=== PATIENT | male | born 1950 | race Caucasian/White ===

== ENCOUNTER → 2016-05-11 | Outpatient (CLI) | payer MEDICARE, OTHER | END | disposition home or self-care (01) | LOC: CDC 13:12 | DX: Z01.810 Encounter for preprocedural cardiovascular examination (principal); R00.1 Bradycardia, unspecified; K42.9 Umbilical hernia without obstruction or gangrene | CPT/HCPCS: 93000 ==

== ENCOUNTER 2016-08-23 17:17 | Inpatient (IN) | payer OTHER ==
[~2016-08-23] VITALS: Ht 182.9 cm; Wt 106.8 kg
[2016-08-23 18:05] LABS: BASOPHIL COUNT 0.1 K/uL (0-0.1); EOSINOPHIL (%) 1.1 % (0-5); EOSINOPHIL COUNT 0.1 K/uL (0-0.3); IMMATURE GRANULOCYTE (%) 0.3 % (0.0-0.7); INSTRUMENT ABS NEUTROPHIL CT 7.4 K/uL; LYMPHOCYTE COUNT 2.8 K/uL (1.0-2.8); MCH 29.1 PG (29.0-34.0); MCHC 32.8 G/DL (30.0-36.0); MCV 88.8 FL (86-99); MEAN PLAT.VOLUME 12.1 uM^3 (9.0-12.4); MONOCYTE COUNT 0.9 K/uL (0-0.8); NEUTROPHIL (%) 65.5 % (45-76); NEUTROPHIL COUNT 7.4 K/uL (1.8-6.4); PLATELET COUNT 215 K/uL (156-360); RBC DIS.WIDTH-CV 13.1 % (11.8-14.6); RBC DIS.WIDTH-SD 42.5 % (39-53); RED BLOOD COUNT 5.29 M/uL (4.00-5.50); WHITE BLOOD COUNT 11.3 K/uL (4.1-10.2)
[2016-08-23 18:18] LABS: ERTH.SED.RATE 38 MM/HR (0-20)
[2016-08-23 18:26] LABS: CHLORIDE 102 mEq/L (99-109); POTASSIUM 3.7 mEq/L (3.7-5.4); SODIUM 138 mEq/L (136-147)
[2016-08-23 18:28] LABS: GLUCOSE 72 mg/dL (70-99)
[2016-08-23 18:29] LABS: ANION GAP 11 MEQ/L (2-14)
[2016-08-23 18:30] LABS: TOTAL BILIRUBIN 0.5 mg/dL (0.0-1.0)
[2016-08-23 18:32] LABS: ALKALINE PHOSPHATASE 52 IU/L (3-129); GFR ESTIMATE (CALCULATED) > 59 mL/min/
[2016-08-23 18:33] LABS: UREA NITROGEN (BUN) 15 mg/dL (9-23)
[2016-08-23 19:02] LABS: C-REACTIVE PROTEIN 12.9 MG/L (0-10); SAMPLE HEMOLYSIS CHECK 0; SAMPLE ICTERIC CHECK 0; SAMPLE LIPEMIA CHECK 0
[2016-08-23] MEDS ORDERED: LOVASTATIN40 MG PO (19:12)
[2016-08-23] MEDS ORDERED: HUMIRA40 MG/0.1 SC (19:13)
[2016-08-23] MEDS ORDERED: VITAMIN D400 UNI1 PO (19:13)
[2016-08-23] MEDS ORDERED: LOTREL 10/21 CAPSULE PO (19:13)
[2016-08-23] MEDS ORDERED: VITAMIN E400 UNIT PO (19:14)
[2016-08-23] MEDS ORDERED: TUMERSAID TABL1 EACH PO (19:15)
[2016-08-24] VITALS (8 sets, daily range): BP systolic 114–154; BP diastolic 69–85
[2016-08-24 05:22] LABS: HEMATOCRIT 40.3 % (38.0-50.0); MCH 29.2 PG (29.0-34.0); MCHC 32.8 G/DL (30.0-36.0); MCV 89.2 FL (86-99); MEAN PLAT.VOLUME 11.9 uM^3 (9.0-12.4); PLATELET COUNT 167 K/uL (156-360); RBC DIS.WIDTH-CV 13.1 % (11.8-14.6); RBC DIS.WIDTH-SD 43.1 % (39-53); RED BLOOD COUNT 4.52 M/uL (4.00-5.50); WHITE BLOOD COUNT 8.8 K/uL (4.1-10.2)
[2016-08-24 05:39] LABS: ALKALINE PHOSPHATASE 44 IU/L (3-129); ANION GAP 7 MEQ/L (2-14); CHLORIDE 105 MEQ/L (99-109); GFR ESTIMATE (CALCULATED) > 59 mL/min/; POTASSIUM 3.7 MEQ/L (3.7-5.4); SAMPLE HEMOLYSIS CHECK 0; SAMPLE ICTERIC CHECK 0; SAMPLE LIPEMIA CHECK 0; SODIUM 135 MEQ/L (136-147); TOTAL BILIRUBIN 0.7 MG/DL (0.0-1.0); UREA NITROGEN (BUN) 13 mg/dL (9-23)
[2016-08-24 05:40] LABS: GLUCOSE 109 mg/dL (70-99)
[2016-08-25 03:28] VITALS: BP 130/82
[2016-08-25 07:27] VITALS: BP 115/66
[2016-08-25 11:18] VITALS: BP 110/67
[2016-08-25 15:19] VITALS: BP 114/63
[2016-08-26 00:10] VITALS: BP 119/68
[2016-08-26 05:56] LABS: ANION GAP 12 MEQ/L (2-14); CHLORIDE 105 MEQ/L (99-109); EOSINOPHIL (%) 0 % (0-5); GFR ESTIMATE (CALCULATED) > 59 mL/min/; GLUCOSE 147 mg/dL (70-99); HEMATOCRIT 43.2 % (38.0-50.0); IMMATURE GRANULOCYTE (%) 0.5 % (0.0-0.7); IMMATURE GRANULOCYTE COUNT 0.1 K/uL; INSTRUMENT ABS NEUTROPHIL CT 13.6 K/uL; LYMPHOCYTE COUNT 1.2 K/uL (1.0-2.8); MAGNESIUM 2.2 mg/dl (1.3-2.7); MCH 29.3 PG (29.0-34.0); MCHC 33.1 G/DL (30.0-36.0); MCV 88.5 FL (86-99); MEAN PLAT.VOLUME 12.4 uM^3 (9.0-12.4); MONOCYTE (%) 2.1 % (3-12); MONOCYTE COUNT 0.3 K/uL (0-0.8); NEUTROPHIL (%) 89.6 % (45-76); NEUTROPHIL COUNT 13.6 K/uL (1.8-6.4); PLATELET COUNT 188 K/uL (156-360); POTASSIUM 3.7 MEQ/L (3.7-5.4); RBC DIS.WIDTH-SD 42.5 % (39-53); RED BLOOD COUNT 4.88 M/uL (4.00-5.50); SAMPLE HEMOLYSIS CHECK 0; SAMPLE ICTERIC CHECK 0; SAMPLE LIPEMIA CHECK 0; SODIUM 138 MEQ/L (136-147); UREA NITROGEN (BUN) 16 mg/dL (9-23); WHITE BLOOD COUNT 15.2 K/uL (4.1-10.2)
[2016-08-26 07:13] VITALS: BP 124/66
[2016-08-26] MEDS ORDERED: Colchicine,Colcrys PO (09:43)
[2016-08-26] MEDS ORDERED: PREDNISONE10 MG PO (09:43)
[2016-08-26] MEDS ORDERED: FAMOTIDINE20 MG PO (09:43)
== END 2016-08-26 15:09 | disposition home or self-care (01) | DRG 547 ==
LOC: EME 17:17 → EDOF 21:28 → 5WEST 21:28 → 3EAST 08-24 15:44 → 5WEST 08-24 15:44 → 3EAST 08-24 18:04
PROVIDERS: Internal Medicine; Nurse Practitioner Family
DX: L40.50 Arthropathic psoriasis, unspecified (principal); E78.00 Pure hypercholesterolemia, unspecified; I10 Essential (primary) hypertension; M65.9 Synovitis and tenosynovitis, unspecified; M13.88 Other specified arthritis, other site; D72.829 Elevated white blood cell count, unspecified; F17.210 Nicotine dependence, cigarettes, uncomplicated; J44.9 Chronic obstructive pulmonary disease, unspecified; D89.9 Disorder involving the immune mechanism, unspecified; M10.9 Gout, unspecified
CPT/HCPCS: 73130; 80048; 80053; 80202; 83605; 83735; 85025; 85027; 85651; 86140; 87040; 87070; 87075; 87205; 89051; 99281; 99285; G0378; J0690; J1644; J2543; J2930; J3370; J7030; J7050